=== PATIENT | female | born 1935 | race Caucasian/White ===

== ENCOUNTER 2017-11-10 06:59 | Day surgery (SDC) | payer MEDICARE ==
[~2017-11-10] VITALS: Ht 154.9 cm; Wt 90.5 kg
[~2017-11-10 06:59] MED LIST: AMOX500 PO; CELE100; FERR325; HYDACE5 PO; OXYACE5T; OXYB5; OXYCONTIN; [UNRECOGNIZED DRUG - REMARK]; [UNRECOGNIZED DRUG - REMARK]
== END 2017-11-10 10:37 | disposition home or self-care (01) ==
LOC: ORSCSDS 06:59
PROVIDERS: Podiatrist Foot & Ankle Surgery
PROC: 0LNW0ZZ Release Left Foot Tendon, Open Approach (ICD-10-PCS; principal; 2017-11-10 08:30)
DX: M19.072 Primary osteoarthritis, left ankle and foot (principal); M77.52 Other enthesopathy of left foot and ankle; M20.42 Other hammer toe(s) (acquired), left foot; E66.01 Morbid (severe) obesity due to excess calories; Z68.37 Body mass index [BMI] 37.0-37.9, adult; Z79.899 Other long term (current) drug therapy
CPT/HCPCS: J0690; J1100; J2250; J2405; J3010; J7120

== ENCOUNTER 2019-05-24 09:31 | Emergency (ER) | payer MEDICARE ==
[~2019-05-24] VITALS: Ht 154.9 cm; Wt 83.9 kg
== END 2019-05-24 10:34 | disposition home or self-care (01) ==
LOC: ER 09:31
DX: S29.9XXA Unspecified injury of thorax, initial encounter (principal); Z79.899 Other long term (current) drug therapy; W18.39XA Other fall on same level, initial encounter
CPT/HCPCS: 99283

== ENCOUNTER 2019-06-26 07:45 | Day surgery (SDC) | payer MEDICARE ==
[~2019-06-26] VITALS: Ht 154.9 cm; Wt 89.0 kg
[2019-06-26] MEDS ORDERED: ONE-DAILY MULT1 EAC1 PO (08:26)
[2019-06-26] MEDS ORDERED: Loratadine10 MG PO (08:26)
[2019-06-26] MEDS ORDERED: Icaps Tablet1 EACH PO (08:27)
[2019-06-26] MEDS ORDERED: VITAMIN D31000 UNI3 PO (08:27)
[2019-06-26] MEDS ORDERED: POTASSIUM GLUCO90 MG PO (08:27)
[2019-06-26] MEDS ORDERED: Super B Comple1 EAC2 PO (08:28)
[2019-06-26] MEDS ORDERED: FISH OIL 1,4001 EACH PO (08:28)
--- NOTE | 2019-06-26 11:00 | NUR ---
pt ambulates to and from restroom without diff. VSS. NADN. R RADIAL REMAINS CLEAR. CALL LIGHT WITHIN REACH.
--- NOTE | 2019-06-26 11:35 | NUR ---
Sbar from Daja Evans RN 2 cc air removed from tr-band. Pt in good spirits.
--- NOTE | 2019-06-26 12:10 | NUR ---
PT AIR FULLY DEPLOYED FROM TR BAND. NO BLEEDING OR HEMATOMA NOTED. VSS. PT VERBALIZES UNDERSTANDING WRITTEN AND VERBAL ORDERS. CALL LIGHT WITHIN REACH.
--- NOTE | 2019-06-26 12:39 | NUR ---
PT DRESSES SELF WITH MINIMAL ASSISTANCE. TR BAND REMOVED. NO BLEEDING OR HEMATOMA NOTED. DOT DRESSING APPLIED/SPLINT/SLING IN PLACE. NADN. VSS. PT IV DC'D. CATH INTACT. PRESSURE DSG IN PLACE. PT DC TO HOME VIA S/O BY WC/ESCORT
== END 2019-06-26 12:40 | disposition home or self-care (01) ==
LOC: MHTC 07:45
PROC: B300YZZ Plain Radiography of Thoracic Aorta using Other Contrast (ICD-10-PCS; principal; 2019-06-26)
PROC: 4A023N7 Measurement of Cardiac Sampling and Pressure, Left Heart, Percutaneous Approach (ICD-10-PCS; principal; 2019-06-26)
PROC: B201YZZ Plain Radiography of Multiple Coronary Arteries using Other Contrast (ICD-10-PCS; principal; 2019-06-26)
DX: I35.0 Nonrheumatic aortic (valve) stenosis (principal); I25.10 Atherosclerotic heart disease of native coronary artery without angina pectoris; J45.909 Unspecified asthma, uncomplicated; Z79.899 Other long term (current) drug therapy
CPT/HCPCS: 93005; 93010; 93454; 99152; C1769; C1894; J1644; J2250; J3010; J7030; Q9967

== ENCOUNTER 2021-03-23 12:58 | Emergency (ER) | payer MEDICARE ==
[~2021-03-23] VITALS: Ht 154.9 cm; Wt 79.8 kg
[~2021-03-23 12:58] MED LIST changes: +FISH OIL 1,4001 EACH PO; +Icaps Tablet1 EACH PO; +Loratadine10 MG PO; +ONE-DAILY MULT1 EAC1 PO; +POTASSIUM GLUCO90 MG PO; +Super B Comple1 EAC2 PO; +VITAMIN D31000 UNI3 PO
[2021-03-23 13:37] LABS: BASOPHILS ABSOLUTE AUTO 0.06 K/mm3 (0.00-0.23); BASOPHILS PERCENT AUTO 1 % (0-2); EOSINOPHILS ABSOLUTE AUTO 0.28 K/mm3 (0.00-0.68); EOSINOPHILS PERCENT AUTO 4 % (0-6); Hematocrit 39.3 % (33.0-51.0); Hemoglobin 13.2 g/dL (11.5-16.0); IMMATURE GRAN ABSOLUTE AUTO 0.02 K/mm3 (0.00-0.10); IMMATURE GRAN PERCENT AUTO 0 % (0-1); LYMPHOCYTES ABSOLUTE AUTO 1.99 K/mm3 (0.84-5.20); LYMPHOCYTES PERCENT AUTO 32 % (21-46); MONOCYTES ABSOLUTE AUTO 0.63 K/mm3 (0.16-1.47); MONOCYTES PERCENT AUTO 10 % (4-13); Mean Corpuscular HGB 32.7 pg (26.0-34.0); Mean Corpuscular HGB Conc 33.6 g/dL (31.5-36.5); Mean Corpuscular Volume 97 fL (80-100); Mean Platelet Volume 9.7 fL (9.1-12.4); NEUTROPHILS ABSOLUTE AUTO 3.33 K/mm3 (1.96-9.15); NEUTROPHILS PERCENT AUTO 53 % (41-73); Platelet Count 221 K/mm3 (150-400); RDW Coefficient Variation 13.2 % (11.7-14.2); RDW Standard Deviation 46.9 fL (35.1-46.3); Red Blood Cell Count 4.04 M/mm3 (3.80-5.20); White Blood Cell Count 6.31 K/mm3 (4.00-11.30)
[2021-03-23 13:46] LABS: Source, Urine Clean Catch
[2021-03-23 13:51] LABS: Appearance, Urine Clear (Clear); Bilirubin, Urine Neg (Neg); Blood, Urine Neg (Neg); Color, Urine Yellow (P-Yellow); Glucose Qualitative, Urine Neg (Neg); Ketones, Urine 1+ (Neg); Leukocyte Esterase, Urine 1+ (Neg); Nitrite, Urine Neg (Neg); Protein, Urine 1+ (Neg); Urobilinogen, Urine NORM (Normal)
[2021-03-23 14:04] LABS: Albumin, Blood 3.6 g/dL (3.4-5.0); Albumin/Globulin Ratio 1.1 (0.8-1.8); Bilirubin, Total 0.4 mg/dL (0.1-1.0); Bun/Creatinine Ratio 19.7 (12.0-20.0); Calcium, Blood 9.7 mg/dL (8.5-10.1); Creatinine, Blood 0.92 mg/dL (0.40-1.00); Globulin, Blood 3.3 g/dL (2.2-4.0); Potassium, Blood 3.9 mmol/L (3.5-5.5); Total Protein, Blood 6.9 g/dL (6.4-8.2)
[2021-03-23 14:50] LABS: Bacteria Few /hpf; Mucus Light (0-Heavy); Squamous Epithelial Cells Few /hpf (Few)
[2021-03-23 14:51] LABS: Calcium Oxalate Crystals Few /hpf
[2021-03-23] MEDS ORDERED: DOCU100 PO (16:03)
[2021-03-23] MEDS ORDERED: MAGCIT300 PO (16:03)
== END 2021-03-23 16:13 | disposition home or self-care (01) ==
LOC: ER 12:58
PROVIDERS: Physician Assistant
DX: K59.00 Constipation, unspecified (principal)
CPT/HCPCS: 36415; 74176; 80053; 81001; 83690; 85025; 87086; 99284-25